=== PATIENT | female | born 1950 | race Caucasian/White ===

== ENCOUNTER 2020-07-16 06:26 | Day surgery (SDC) | payer MEDICARE ==
[2020-07-16] MEDS ORDERED: Lactated Ringers 1,000 ML IV SCH (07:00)
[2020-07-16] MEDS ORDERED: Propofol 200 MG/20 ML SDV ONE (07:32)
[2020-07-16] MEDS ORDERED: Midazolam 1 MG/ML 2 ML SDV ONE (07:32)
[2020-07-16] MEDS ORDERED: fentaNYL 100 MCG/2 ML SDV ONE (07:32)
--- NOTE | 2020-07-16 10:53 | OR ---
DATE OF PROCEDURE: 07/16/2020 SURGEON: Irvin Vazquez MD PROCEDURE: Colonoscopy. FINDINGS: 1. Ascending colon polyp, approximately 5 mm, completely removed using cold biopsy forceps. 2. Sigmoid colon polyp, approximately 5 mm, completely removed using hot snare wire device. COMPLICATIONS: None. OCCUPATIONAL HEALTH NURSE MANAGER: None. ANESTHESIA: MAC. PREOPERATIVE DIAGNOSIS: Screening colonoscopy. POSTOPERATIVE DIAGNOSIS: Screening colonoscopy. RISKS: Risks, benefits, alternatives, and limitations including, but not limited to infection, bleeding, and perforation were explained to the patient who wished to proceed. PROCEDURE IN DETAIL: The patient was placed in left lateral decubitus position. Digital rectal exam was performed without abnormality. Scope was introduced and advanced atraumatically to the ileocecal valve. A photo was taken of this. Scope was brought back through the ascending, transverse, descending colon, and retroflexed. The polyps were identified and completely removed as described above. No abnormal bleeding was noted after removal. The patient had no other abnormalities except for diverticulosis which was noted to be mostly concentrated in the sigmoid colon without evidence of diverticulitis. No abnormalities on retroflexion. The patient tolerated the procedure well. Irvin Vazquez MD /[id number]
== END 2020-07-16 09:05 | disposition home or self-care (01) ==
LOC: JP.SDS 06:26
PROVIDERS: ATTEND Surgery
DX: Z12.11 Encounter for screening for malignant neoplasm of colon (principal); D12.2 Benign neoplasm of ascending colon; E78.5 Hyperlipidemia, unspecified; E66.9 Obesity, unspecified; Z68.30 Body mass index [BMI] 30.0-30.9, adult
CPT/HCPCS: 88305; J2250; J2704; J3010; J7120

== ENCOUNTER 2023-04-23 07:01 | Day surgery (SDC) | payer MEDICARE ==
[~2023-04-23 07:01] MED LIST: Propofol 200 MG/20 ML SDV ONE; fentaNYL 50 MCG/ML SDV ONE
[2023-04-23] MEDS ORDERED: Propofol 200 MG/20 ML SDV ONE ×2 (07:02→08:00)
[2023-04-23] MEDS ORDERED: Sodium Chloride 0.9% 1,000 ML IV SCH (07:50)
== END 2023-04-23 10:43 | disposition home or self-care (01) ==
LOC: JP.SDS 07:01
PROVIDERS: ATTEND Surgery
DX: K63.5 Polyp of colon (principal); K57.30 Diverticulosis of large intestine without perforation or abscess without bleeding; E78.00 Pure hypercholesterolemia, unspecified; Z85.3 Personal history of malignant neoplasm of breast; Z88.8 Allergy status to other drugs, medicaments and biological substances
CPT/HCPCS: 45380; 45381; J2704; J3010; J7030; 88305

== ENCOUNTER 2025-03-13 08:36 | Inpatient (IN) | payer MEDICARE ==
[2025-03-13 09:19] LABS: INR 1.0; PTT,PARTIAL THROMBOPLSTIN TIME 24.1 sec (21.8-27.3)
[2025-03-13] MEDS ORDERED: Naloxone 0.4 MG/ML SDV IVPUSH PRN (09:30)
[2025-03-13] MEDS ORDERED: Flumazenil 0.1 MG/ML 5 ML MDV IVPUSH PRN (09:30)
[2025-03-13] MEDS: Midazolam 1 MG/ML 5 ML SDV IVPUSH ONE ×2 (10:47→14:34)
[2025-03-13] MEDS: fentaNYL 100 MCG/2 ML SDV IVPUSH ONE ×2 (10:57→14:34)
[2025-03-13] MEDS ORDERED: Magnesium Hydroxide 400 MG/5 ML Susp 30 ML Cup PO PRN (14:07)
[2025-03-13] MEDS ORDERED: Sennosides/Docusate Sodium 50-8.6 MG Tab PO PRN (14:07)
[2025-03-13] MEDS ORDERED: Ondansetron 4 MG Tab.DIS PO PRN (14:07)
[2025-03-13] MEDS ORDERED: Ondansetron 4 MG/2 ML SDV IV PRN (14:07)
[2025-03-13] MEDS: Midazolam 1 MG/ML 5 ML SDV ONE (14:33)
[2025-03-13] MEDS: fentaNYL 100 MCG/2 ML SDV ONE (14:33)
== END 2025-03-14 14:28 | disposition home or self-care (01) | DRG 200 ==
LOC: JP.ACU 08:36 → JP.MS 13:56
PROVIDERS: ADMIT Internal Medicine; ATTEND Internal Medicine
PROC: 0W9B30Z Drainage of Left Pleural Cavity with Drainage Device, Percutaneous Approach (ICD-10-PCS; principal; 2025-03-13)
DX: J95.811 Postprocedural pneumothorax (principal); C78.01 Secondary malignant neoplasm of right lung; C79.51 Secondary malignant neoplasm of bone; C78.02 Secondary malignant neoplasm of left lung; C50.919 Malignant neoplasm of unspecified site of unspecified female breast; Z17.0 Estrogen receptor positive status [ER+]; I10 Essential (primary) hypertension; E78.00 Pure hypercholesterolemia, unspecified; E11.9 Type 2 diabetes mellitus without complications; Z90.10 Acquired absence of unspecified breast and nipple; Z88.8 Allergy status to other drugs, medicaments and biological substances; Z86.16 Personal history of COVID-19; Z98.890 Other specified postprocedural states; Z79.899 Other long term (current) drug therapy
CPT/HCPCS: 32400; 32400-LT; 32557; 36415; 71046; 71046-26; 77012; 77012-26; 85610; 85730; 87070; 87075; 87102; 87205; 88305; 88341; 88342; 88360; 99222; 99238; C1729; C1769; J2250; J3010; J7030